=== PATIENT | female | born 1950 | race Caucasian/White ===

== ENCOUNTER → 2019-03-18 | Outpatient (CLI) | payer OTHER | END | disposition home or self-care (01) | LOC: RAD 09:43 | DX: R07.89 Other chest pain (principal) ==

== ENCOUNTER → 2023-05-21 | Outpatient (CLI) | payer OTHER | END | disposition home or self-care (01) | LOC: MAMO-SONO 12:02 | DX: Z12.31 Encounter for screening mammogram for malignant neoplasm of breast (principal); Z12.39 Encounter for other screening for malignant neoplasm of breast ==

== ENCOUNTER 2024-08-31 11:08 | Outpatient (CLI) | payer OTHER | END 2024-08-31 11:16 | disposition home or self-care (01) | LOC: MAMO-SONO 11:08 | DX: N64.4 Mastodynia (principal); M25.571 Pain in right ankle and joints of right foot; Z12.31 Encounter for screening mammogram for malignant neoplasm of breast ==

== ENCOUNTER 2024-08-31 12:36 | Outpatient (CLI) | payer OTHER | END 2024-08-31 12:38 | disposition home or self-care (01) | LOC: NUCLEAR 12:36 | DX: M81.0 Age-related osteoporosis without current pathological fracture (principal) ==